=== PATIENT | male | born 2005 | race Caucasian/White ===

== ENCOUNTER 2023-07-30 17:55 | Emergency (ER) | payer SELFPAY ==
[2023-07-30 18:06] VITALS: BP 125/75; PULSE 95; RESP 18; TEMP 98
[2023-07-30] MEDS ORDERED: ACETAMINOPHEN 500 MG TABLET (FP) ONE (19:51)
[2023-07-30] MEDS: ACETAMINOPHEN 500 MG TABLET (FP) PO ONE (19:57)
== END 2023-07-30 20:50 | disposition home or self-care (01) ==
LOC: JER 17:55
DX: S69.92XA Unspecified injury of left wrist, hand and finger(s), initial encounter (principal); R07.81 Pleurodynia; Y04.0XXA Assault by unarmed brawl or fight, initial encounter; Z59.00 Homelessness unspecified
CPT/HCPCS: 36415; 71101-TC-RT-FY; 73110-TC-LT-FY; 87491; 87591; 99284-25